=== PATIENT | female | born 1965 | race Caucasian/White ===

== ENCOUNTER 2017-07-07 05:20 | Inpatient (IN) | payer OTHER ==
[2017-07-07] VITALS (8 sets, daily range): BP systolic 109–120; BP diastolic 61–70
[~2017-07-07] VITALS: Ht 165.1 cm; Wt 103.4 kg
--- NOTE | ~2017-07-07 | S ---
[facility] [place] [address] SURGICAL PATH RPT PROCEDURE Name: RACHELE RODRIGES Room #: 424-P ADM IN M.R.#: [id number] Admission: 07/08/17 Date of : 61 Discharge: Report #: [id number] Path Case #: [id number] PATHOLOGY REPORT COLLECTION DATE: 07/07/2017 RECEIVED DATE: 07/08/2017 SUBMITTING PHYS: Dr. Sergo Geronimo OTHER PHYS: Dr. Farshad Fitch SPECIMEN(S) RECEIVED: A.Liver biopsy * * * * * * * * * * * * FINAL DIAGNOSIS: Liver, core needle biopsy: - Benign liver parenchyma. - Final diagnosis pending consultation with pathologists at the [facility]. (SKM:mindy; 07/09/2017) PATHOLOGIST: Vernon Bruner M.D. REPORT ELECTRONICALLY SIGNED BY: Vernon Bruner M.D. DATE/TIME: 07/09/2017 15:06 * * * * * * * * * * * * GROSS PATHOLOGY: Received in formalin labeled "Rachele Rodriges, liver biopsy" and consists of 3 aguilar tissue cores each averaging 1.6 cm in length by less than 0.1 cm in diameter. The specimen is totally submitted A1. (ROHIT; 07/08/2017) CLINICAL HISTORY: Per operative note "her liver appeared nodule consistent with early cirrhosis" Incisional hernia Liver biopsy INITIAL CPT CODE(S): A; 63706, 27313, 69334, 62806, 39806, 24764 Professional services performed by [facility] at [facility] [address] [place] [address] Technical services performed by [facility] at [address] [place] [id number]. [facility] [address] [place] [address] SURGICAL PATH RPT PROCEDURE Name: RACHELE RODRIGES Room #: 424-P ADM IN M.R.#: [id number] Admission: 07/08/17 Date of : 61 Discharge: Report #: [id number] Path Case #: [id number] [address] PHONE: [phone] DIRECTOR: Quan Lombardo M.D. * * * END OF REPORT * * *
--- NOTE | ~2017-07-07 | H ---
[facility] [place] [address] HISTORY AND PHYSICAL Name: RACHELE RODRIGES Room #: 424-P [facility] M.R.#: [id number] Admission: 07/07/17 Attend Phys: Sergo Geronimo MD Discharge: Date of : 61 Report #: [id number] THIS REPORT FOR: //name// CC: Sergo Fitch MD DATE OF SERVICE: 07/07/2017 PREOPERATIVE DIAGNOSIS: Incisional hernia, here for laparoscopic repair. HISTORY OF PRESENT ILLNESS: The patient is a 52-year-old who had a history of anemia back in 2014. She had a complete workup. She did have transfusion. She had large ovarian masses. She went to and had a total hysterectomy. This was performed through a midline incision. The patient was told that she had an umbilical hernia and that it was repaired at the time of her hysterectomy. 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 She underwent chemotherapy between 09/2015 and 01/2016. The patient did have a CT performed recently that showed incisional hernias. Since her [employer] surgery, she has noticed a protrusion in the abdomen and she does complain of some pain in the abdomen. She has occasional nausea. No vomiting. Has history of constipation alternating with diarrhea. She has been getting CTs every 6 months. The patient was seen and examined and noted to have several fascia defects present. There are several around the umbilical area and then one even down lower and another one higher up. The patient is recommended to have a laparoscopic repair of the incisional hernia. PAST MEDICAL HISTORY: The patient has history of diabetes for 4 years. Lymphoma involving the ovarian source. MEDICATIONS: Metformin 1000 mg b.i.d., Levemir 20 once a day, Lovenox 3 times a day, Cymbalta, Crestor, levothyroxine. ALLERGIES: SHE IS ALLERGIC TO DAYPRO AND COBAN TAPE. PAST SURGICAL HISTORY: Breast reduction in 1995 and 07/2015 total hysterectomy. FAMILY HISTORY: Aneurysm, heart disease, Alzheimer's. SOCIAL HISTORY: The patient works in [place], does not smoke or drink. 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 No shortness of breath, chest pain, or palpitation. PHYSICAL EXAMINATION: [address] [address] HISTORY AND PHYSICAL Name: RACHELE RODRIGES Room #: [facility] M.R.#: [id number] Admission: 07/07/17 Attend Phys: Sergo Geronimo MD Discharge: Date of : 61 Report #: [id number] GENERAL: The patient is a well-nourished female, in no acute distress. HEENT: Pupils reactive to light. Extraocular muscles are intact. Oropharynx clear. NECK: Soft and supple, no masses, no JVD. LUNGS: Clear to auscultation. HEART: Regular rate and rhythm. No murmur or gallop. ABDOMEN: Soft and nondistended. The patient does have multiple fascia defects on her incision. No mass detected, the large hernia is reducible. There is some smaller hernia that is not reducible. Likely contains fat. No ascites detected. EXTREMITIES: No cyanosis, clubbing, edema. IMPRESSION: The patient is a 52-year-old with incisional hernia along the midline incision. There are multiple defects present. She does have pains in this area on occasion. Repair is recommended. One of the hernia is fairly low, may have to mobilize the peritoneum off the wall and get into the properitoneal space, especially inferiorly. Mesh repair was discussed and recommended. The patient understands the procedure and the risks involved. She wished to proceed. <ELECTRONICALLY SIGNED> By: Sergo Geronimo MD 07/08/17 1203 [id number] Sergo Geronimo MD /nt
--- NOTE | ~2017-07-07 | O ---
[facility] [place] [address] OPERATIVE REPORT Name: RACHELE RODRIGES Room #: REG [facility].#: [id number] Admission: 07/07/17 Attend Phys: Sergo Geronimo MD Discharge: Date of : 61 Report #: [id number] THIS REPORT FOR: //name// CC: Sergo Fitch MD PREOPERATIVE DIAGNOSIS: Complex incisional hernia. POSTOPERATIVE DIAGNOSES: 1. Complex multiple incisional hernias at midline scar. 2. Nodularity of the liver consistent with cirrhosis. PROCEDURES PERFORMED: 1. Laparoscopic repair of complex incisional hernia with a 7 x [address] mesh and 6 inch circled Ventralight mesh. 2. Lysis of extensive adhesions. SURGEON: Sergo Geronimo M.D. ANESTHESIA: General anesthesia. COMPLICATIONS: None. ESTIMATED BLOOD LOSS: 20 mL. DESCRIPTION OF PROCEDURE: With the patient under general anesthesia, Castro catheter was placed. IV antibiotic was administered. Timeout was performed. The patient's abdomen is prepped and draped in sterile fashion. A cut down site was performed in the left abdomen slightly above the level of the umbilicus. The site was chosen to avoid getting into adhesions. The incision is about 2.5 cm. After this, the anterior rectus sheath was identified. Anterior rectus sheath was opened sharply and a 0 Vicryl suture placed on the fascia edges. Muscle was spread. The posterior sheath was then grasped with hemostat. This was then also opened. An 0 Vicryl suture placed on the edge of the posterior sheath for retraction. I did see some scar tissue along the medial aspect of this opening. When I palpated the more lateral part, it did appear to be in the free cavity. Origin balloon trocar was placed. CO2 was placed through the balloon trocar. The balloon was inflated to create a seal. Laparoscope did show extensive adhesions underneath her incision. There was adhesion just adjacent to the trocar. I went ahead and I was able to see the upper aspect of the abdomen and noted that her liver appeared nodular consistent with early cirrhosis. I do not see any evidence of portal hypertension. A 5 mm trocar was placed in left upper quadrant. Harmonic scalpel was used take the upper part of the adhesions down, which was all fatty in nature. When I got down to the area above the umbilicus, the transverse colon was visualized, was stuck to the wall. A 5 mm scope was placed in the left upper quadrant trocar. The adhesion [facility] [address] [place] [address] OPERATIVE REPORT Name: RACHELE RODRIGES Room #: REG [facility]..#: [id number] Admission: 07/07/17 Attend Phys: Sergo Geronimo MD Discharge: Date of : 61 Report #: [id number] immediately around the original 10 mm origin balloon trocar was taken down. This allowed the view of the left lower quadrant and a second 5 mm trocar was placed laterally in the left lower quadrant. Dissection was then carried out freeing the adhesions. Care was taken to free the adhesion of the bowel to the wall. There was some separation that we were able to free open. The bowel adhesions were dense only a couple of places and these were really the small bowel that was here lower down. The colon and small bowel were not injured during this dissection. All adhesions were taken down. The patient had multiple fascia defects, a large defect superiorly and multiple defects around the umbilicus which had more depth through it and then a large defect inferiorly along the lower corner of the scar. Sigmoid colon was distended closed by this. The peritoneum at the lower edge of this fascia defect was opened up and the properitoneal dissection was carried out. Did not require going down to the pubic bone at this point. Dissection was performed close to the wall to avoid the bladder. Once the abdominal wall was all exposed, a 7 x [address] with echo technology was used. This was inserted by removing the origin balloon trocar directly in the abdomen. This balloon was inflated on the echo channels and the mesh was pulled up against the wall. This covered the lower part of the fascia defect well. I did slide it down to go down underneath in the properitoneal plane inferiorly. Superiorly, the most upper incision was not able to be covered by this fairly large size mesh. Decided to go ahead and use a 6-inch pamunkey Ventralight ST patch. The balloon was inflated on that. The 7 x 9 mesh was tacked down with SorbaFix. The upper 6-inch circular piece was also tacked with SorbaFix, a total of 230 SorbaFix was used. Transfascial suture was placed at the 12 o'clock of the 6-inch mesh and then were the 2 mesh overlapped. On both sides, a transfascial suture of Atkins-Kevin EVL suture was used. Inferiorly, 2 transfascial sutures were also used. This was placed about the lowest part I could get on the 7 x 9 mesh. A total of 5 transfascial sutures were placed. Two of the transfascial sutures incorporated both of the mesh with an overlap. No bleeding was identified. During the placement of the left lower transfascial suture, the suture did get the inferior epigastric artery. When the suture was tied down, the bleeding was controlled. Most of the bleeding was out through the skin not internally. Irrigation was performed. Liver biopsy was performed with an 18-gauge Laith-Cut needle. Three separate passes were performed along the medial segment of the lateral lobe. Again, the liver had diffuse nodularity. Good cores were obtained. Specimen sent to pathology. The patient cutdown site where the balloon trocar was was closed with 0 PDS [id number] x 2. The anterior sheath was also closed with [id number] 0 PDS x 2. Skin was closed with 5-0 PDS at this trocar and then the 5 [address]car. I did place a 5 mm trocar in the right lower quadrant to perform the properitoneal dissection along the inferior edge of the defects. [facility] [address] [place] [address] OPERATIVE REPORT Name: RACHELE RODRIGES Room #: REG [facility] M..#: [id number] Admission: 07/07/17 Attend Phys: Sergo Geronimo MD Discharge: Date of : 61 Report #: [id number] The transfascial suture sites were closed with Dermabond. Band-Aids were applied. The patient tolerated the procedure well. By: 1114 [id number] Sergo Geronimo MD /nt
--- NOTE | ~2017-07-07 | EKG ---
[address] [address] ELECTROCARDIOGRAM REPORT Name: RACHELE RODRIGES Room #: [address] [place] [address]..#: [id number] Admission: 07/07/17 Attend Phys: Sergo Geronimo MD Discharge: Date of : 61 Report #: [id number] THIS REPORT FOR: //name// [facility] Test Date: 2017-07-07 Test Time: 09:45:49 Pat Name: RACHELE RODRIGES Department: Room: [facility] Gender: F Paradichlorobenzene Tender: LOULOU : 1965 Requested By: Sergo Geronimo Order Number: [id number] MD: Frank Roche Measurements Intervals [place] Rate: 69 P: 55 UT: 172 QRS: 51 QRSD: 96 T: 30 QT: 391 QTc: 419 Interpretive Statements Sinus rhythm Poor R-wave progression Compared to ECG 12/08/2015 12:51:55 Sinus tachycardia no longer present Electronically Signed On 07-07-2017 10:01:24 [employer]STRUCTION [employer] by Frank Roche [email or web address] <ELECTRONICALLY SIGNED> By: Frank Roche MD, [facility] 07/07/17 1001 D: 12/944 4 Frank Roche MD, FACC /EPI
[~2017-07-07 05:20] MED LIST: CRESTOR10 MG; CRESTOR40 MG PO; CYMBALTA20 MG PO; GLUCOPHAGE1000 MG PO; HUMALOG PE100 UNIT/M; IBUPROFEN 200200 M1 PO; LEVAQUIN 750 M750 MG PO; LEVEMIR; LEVEMIR SUBQ; LEVOTHYROXIN0.025 MG; MS CONTIN 30 MG30 MG PO; NOVOLOG100 UNIT/1 SUBQ; OXYCODONE HCL 55 MG PO; OXYCODONE PO; OXYCONTIN20 M1 PO; SENOKOT-S1 TA1 PO; SYNTHROID112 MCG PO; VITAMIN D2000 UNI1 PO
[2017-07-07 10:14] LABS: CALCIUM 9.6 mg/dL (8.5-10.1); CREATININE 0.7 mg/dL (0.6-1.0); POTASSIUM 4.2 mmol/L (3.5-5.1)
[2017-07-07 10:22] LABS: ALBUMIN 3.7 g/dL (3.4-5.0); TOTAL BILIRUBIN 0.5 mg/dL (<0.1-1.0); TOTAL PROTEIN 7.8 g/dL (6.4-8.2)
[2017-07-08 03:00] VITALS: BP 115/69
[2017-07-08 06:41] LABS: HEMATOCRIT 37.7 % (37.0-47.0); HEMOGLOBIN 12.2 gm/dL (12.0-15.0); MCH 27.7 pg (26.0-34.0); MCHC 32.3 g/dL (28.0-37.0); MCV 85.5 fL (80.0-100.0); RBC 4.41 mil/uL (4.20-5.00); RDW 14.9 % (10.5-14.5); WBC 9.7 thou/uL (4.0-11.0)
[2017-07-08 06:53] LABS: CALCIUM 9.1 mg/dL (8.5-10.1); CREATININE 0.7 mg/dL (0.6-1.0); POTASSIUM 3.8 mmol/L (3.5-5.1)
[2017-07-08 07:54] VITALS: BP 113/68
[2017-07-08 15:09] VITALS: BP 113/63
[2017-07-08 19:24] VITALS: BP 144/84
[2017-07-09 03:55] VITALS: BP 137/79
[2017-07-09 05:54] LABS: ABSOLUTE NEUTROPHILS 6.7 thou/uL (1.4-8.2); BASOPHILS 0.7 % (0.0-2.0); EOSINOPHILS 0.6 % (0.0-3.0); HEMATOCRIT 36.7 % (37.0-47.0); HEMOGLOBIN 12.2 gm/dL (12.0-15.0); MCH 28.2 pg (26.0-34.0); MCHC 33.1 g/dL (28.0-37.0); MCV 85.3 fL (80.0-100.0); MONOCYTES 6.4 % (1.0-8.0); PLATELET COUNT 117 thou/uL (150-400); POLYS 69.3 % (36.0-66.0); RBC 4.31 mil/uL (4.20-5.00); WBC 9.7 thou/uL (4.0-11.0)
[2017-07-09 06:03] LABS: MANUAL DIFF NO
[2017-07-09 06:19] LABS: CALCIUM 8.9 mg/dL (8.5-10.1); CREATININE 0.6 mg/dL (0.6-1.0); MAGNESIUM 1.5 mg/dL (1.8-2.4); POTASSIUM 3.4 mmol/L (3.5-5.1); TOTAL BILIRUBIN 1.1 mg/dL (<0.1-1.0); TOTAL PROTEIN 7.1 g/dL (6.4-8.2)
[2017-07-09 07:40] VITALS: BP 137/76
[2017-07-09 15:17] VITALS: BP 147/81
[2017-07-09 20:58] VITALS: BP 141/72
[2017-07-10 03:07] VITALS: BP 105/60
[2017-07-10] MEDS ORDERED: VALIUM5 MG PO (06:05)
[2017-07-10] MEDS ORDERED: PERCOCET PO (06:05)
[2017-07-10] MEDS ORDERED: MIRALAX17 GM PO (06:06)
[2017-07-10 06:11] VITALS: BP 105/60
[2017-07-10 08:00] VITALS: BP 128/69
== END 2017-07-10 10:08 | disposition home or self-care (01) | DRG 335 ==
LOC: TBA 05:20 → OR 05:20 → 4E 16:49 → OR 07-08 12:05 → 4E 07-08 12:07
PROVIDERS: Registered Nurse; Surgery
PROC: 0WUF4JZ Supplement Abdominal Wall with Synthetic Substitute, Percutaneous Endoscopic Approach (ICD-10-PCS; principal; 2017-07-07)
PROC: 0DN84ZZ Release Small Intestine, Percutaneous Endoscopic Approach (ICD-10-PCS; 2017-07-07)
DX: K43.2 Incisional hernia without obstruction or gangrene (principal); J96.00 Acute respiratory failure, unspecified whether with hypoxia or hypercapnia; K74.60 Unspecified cirrhosis of liver; K66.0 Peritoneal adhesions (postprocedural) (postinfection); E11.65 Type 2 diabetes mellitus with hyperglycemia; E03.9 Hypothyroidism, unspecified; Z85.72 Personal history of non-Hodgkin lymphomas; Z90.710 Acquired absence of both cervix and uterus; Z92.21 Personal history of antineoplastic chemotherapy
CPT/HCPCS: 10783; 50010; 50101; 50249; 50386; 50455; 50555; 50687; 50848; 50858; 50978; 51046; 51489; 53065; 53307; 53335; 54022; 54118; 56462; 56525; 56526; 56530; 56639; 56719; 57092; 62110; 62900; 70005